=== PATIENT | male | born 1945 | race Caucasian/White ===

== ENCOUNTER 2020-06-24 13:27 | Inpatient (IN) | payer MEDICARE, SELFPAY ==
[2020-06-24] VITALS (27 sets, daily range): BP systolic 124–171; BP diastolic 62–103; PULSE 73–97; RESP 13–25; TEMP 36.6–36.9; O2SAT 92–94; BMI 29.7
--- NOTE | ~2020-06-24 | US_ITS ---
EXAMINATION: US right upper quadrant DATE: 06/24/2020 14:09 INDICATION: Chest pain. TECHNIQUE: Multiple grayscale and Doppler ultrasound images of the abdomen were obtained. COMPARISON: Chest CT 10/18/2014 FINDINGS: The visualized portions of the head and body of the pancreas are normal. The liver demonstr ates diffuse steatosis. No liver surface nodularity. There is normal flow in main portal vein. The ga llbladder is distended. No gallstones or gallbladder wall thickening. There was no sonographic Valencia sign. The common duct is normal and measures 3 mm. Right kidney is normal. IMPRESSION: 1. Diffuse hepatic steatosis. 2. Gallbladder distention, but no specific evidence of acute cholecystitis. Reviewed, dictated and finalized at location A.
--- NOTE | ~2020-06-24 | XR_ITS ---
EXAMINATION: XR chest 1V portable DATE: 06/26/2020 12:42 INDICATION: Hypoxia. TECHNIQUE: A single frontal view of the chest was obtained. COMPARISON: Chest 2 views 06/24/2020, chest CT 06/24/2020 FINDINGS: There is mild atelectasis in the lower lung zones. No pleural effusion or pneumothorax. The heart size is normal. Calcified right hilar lymph nodes are consistent with old granulomatous diseas e. IMPRESSION: 1. Mild atelectasis in the lower lung zones. Reviewed, dictated and finalized at location A.
--- NOTE | ~2020-06-24 | XR_ITS ---
EXAMINATION: XR chest 2V DATE: 06/24/2020 13:52 INDICATION: Chest pain. TECHNIQUE: Frontal and lateral views of the chest were obtained. COMPARISON: Chest 2 views 12/08/2005, chest CT 10/18/2014 FINDINGS: There is mild atelectasis in the lower lung zones. No pleural effusion or pneumothorax. The heart size is normal. IMPRESSION: 1. Mild atelectasis in the lower lung zones. Reviewed, dictated and finalized at location A.
--- NOTE | ~2020-06-24 | CT_ITS ---
EXAMINATION: CTA chest PE protocol DATE: 06/24/2020 16:07 CDT INDICATION: Chest pain TECHNIQUE: Computed tomographic angiography (CTA) of the chest was performed with 100 mL Omnipaque-35 0 intravenous contrast. The dose-length product was 643.28 mGy-cm. Maximum intensity projection 3D-re constructions of the aorta and other arteries were constructed by the technologist on a separate work station. Automated exposure control and iterative reconstruction technique were employed. COMPARISON: CT dated 10/18/2014. FINDINGS: Study is technically adequate without evidence for pulmonary embolism. No significant vascu lar abnormality. No evidence for aortic aneurysm or dissection. Heart size normal. There are borderli ne size mediastinal lymph nodes, likely reactive. No significant pleural or pericardial effusion. Upp er abdomen is unremarkable. Stable 6 mm fissural nodule at the junction of the right minor and major fissure, likely benign lymph node. There is subsegmental atelectasis of the lower lungs bilaterally. There is dependent atelectasis. No endobronchial lesions. No acute osseous abnormality. IMPRESSION: 1. No evidence for pulmonary embolism. 2: Bibasilar subsegmental and dependent atelectasis. Reviewed, dictated and finalized at location A.
--- NOTE | ~2020-06-24 | NM_ITS ---
EXAMINATION: NM hepatobiliary w pharm EXAM DATE: 06/25/2020 14:04 INDICATION: Right upper quadrant pain. TECHNIQUE: 3.5 mCi Tc-99m mebrofenin (Choletec) was administered intravenously. Scintigraphic images of the abdomen were obtained for one hour. At that time 4 mg morphine injected and then additional i maging obtained for an additional half an hour. FINDINGS: There is normal clearance of radiotracer from the blood pool. There is homogeneous tracer u ptake by the liver. By 20 minutes time activity identified within the common bile duct, and shortly t hereafter within small bowel. No gallbladder activity at one hours time. Imaging following morphine injection also demonstrates no evidence of gallbladder activity. This is c onsistent with acute cholecystitis, but occasionally prolonged absence of food intake can lead to fal se positives. IMPRESSION: Nonfilling gallbladder, consistent with acute cholecystitis. Reviewed, dictated and finalized at location A.
--- NOTE | 2020-06-24 13:28 | ECG_ITS ---
Measurements Intervals [place] Rate: 87 P: 60 MN: 157 QRS: 29 QRSD: 93 T: 70 QT: 338 QTc: 408 Interpretive Statements SINUS RHYTHM BASELINE ARTIFACT- I, II, III, AVR, AVL, AVF, V2-V6 NORMAL ECG Electronically Signed On 06-24-2020 14:18:38 CDT by Bhavin Haile D.O.
--- NOTE | 2020-06-24 13:33 | ED.CHESTPAIN ---
HPI - Chest Pain General Chief Complaint: Chest Pain Stated Complaint: Chest pain Time Seen by Provider: 06/24/20 13:30 History of Present Illness HPI narrative: Patient is a 74-year-old male who presents to the ER with chest pain. Began prior to arrival. Sharp and radiating to the back. Occurred about 45 minutes after eating some biscuits and gravy. Some mild nausea associated with this. No exertional chest pain or shortness of breath. Denies previous IA. He has found no alleviating factors. Denies abdominal pain/diarrhea. Related Data Home Medications Medication Instructions Recorded Confirmed atorvastatin 10 mg PO DAILY 06/24/20 06/24/20 cholecalciferol (vitamin D3) 1,000 units PO DAILY 06/24/20 06/24/20 glimepiride 2 mg PO DAILY 06/24/20 06/24/20 Allergies Allergy/AdvReac Type Severity Reaction Status Date / Time latex Allergy Unknown Unknown Verified 06/24/20 13:36 Review of Systems Review of Systems: All systems reviewed & are unremarkable except as noted in HPI and below Constitutional: Constitutional: Denies chills and Denies fever(s) ENT: Denies nasal congestion and Denies sore throat Cardiovascular: Cardiovascular: Reports chest pain, Denies rapid heart rate and Denies radiating jaw, neck or arm pain Respiratory: Respiratory: Denies cough, Denies dyspnea and Denies wheezing Gastrointestinal: Gastrointestinal: Denies abdominal pain, Denies constipation, Denies diarrhea, Reports nausea and Denies vomiting Genitourinary: Genitourinary: Denies hematuria, Denies dysuria and Denies urinary frequency [facility] Past Medical History Medical History (Updated 06/25/20 @ 00:20 by Hu Huerta MD) Asbestosis BMI 25.0-25.9,adult Chronic obstructive pulmonary disease, unspecified Hypercholesterolemia Hyperlipidemia Hypertension Type 2 diabetes mellitus without complications Surgical History Surgical History (Updated 06/24/20 @ 19:34 by Kari Sanches NP) S/P arthroscopic surgery of right knee S/P tonsillectomy and adenoidectomy Family History Family History (Updated 06/24/20 @ 19:53 by Tarah Siddiqui RN) Sibling Cancer Father Acute myocardial infarction Sibling Esophageal adenocarcinoma Social History Social History (Updated 06/24/20 @ 19:41 by Kari Sanches NP) Social History: Patient is and his is the durable power employment law attorney for healthcare. The patient desires to be a full code but does not desire to live in a vegetative state. The patient has 2 children. The patient quit smoking in 1988. He has 2 children. He retired from [employer]. Smoking status: Never smoker Second hand tobacco smoke exposure: No Alcohol intake: current Substance use: never Substance use type: does not use Gender identity (if verbalized by the patient): Male Spiritual care concerns: No Exam Narrative: Exam Narrative: GENERAL: Well-appearing, well-nourished, and in no acute distress. HEAD: Normocephalic, atraumatic. NECK: Supple. CHEST: Clear to auscultation. No respiratory distress. HEART: Regular rate and rhythm. Normal peripheral pulses. ABDOMEN: Soft, tender palpation right upper quadrant with guarding, nondistended. EXTREMITIES: Normal range of motion. trace edema. SKIN: Warm, dry, no rash. NEURO: Alert and oriented x3. PSYCH: Normal mood and affect. Course Reevaluation(s) Reevaluation #1: Patient still having pain after morphine. Ultrasound with distended gallbladder but no stones or evidence of cholecystitis. LFTs normal. Patient is now in atrial flutter and given his persistent pain and reports that he has pain with deep breath will rule out pulmonary emboli with a CTA. Date: 06/24/20 Time: 15:32 Vital Signs Vital signs: Vital Signs Temperature 98 F 06/24/20 13:33 Pulse Rate 93 06/24/20 13:33 Respiratory Rate 21 H 06/24/20 13:33 Blood Pressure 171/103 H 06/24/20 13:33 Pulse Oximetry 92 06/24/20 13:33 Tem
[2020-06-24] MEDS: MORPHINE SULFATE (*CRX) 4 MG/ML INJ IV PUSH ×3 (13:59→20:08)
[2020-06-24 14:54] LABS: Basophils Absolute Auto 0.1 K/mm3 (0.0-0.1); Basophils Percent Auto 0.5 % (0.2-1.2); Eosinophils Absolute Auto 0.2 K/mm3 (0-0.3); Eosinophils Percent Auto 1.9 % (0-4.4); Hemoglobin 16.2 g/dL (14.0-18.0); Immature Granulocyte Absolute 0.05 K/mm3 (0.00-0.031); Immature Granulocyte Percent A 0.5 % (0-0.5); Lymphocytes Absolute Auto 2.19 K/mm3 (0.9-3.2); Lymphocytes Percent Auto 21.7 % (18.3-44.2); Mean Corpuscular HGB Conc 34.5 g/dl (32-36); Mean Corpuscular Volume 92.7 fl (80-100); Mean Platelet Volume 11.8 fl (7.4-10.4); Monocytes Absolute Auto 0.9 K/mm3 (0.1-0.6); Neutrophils Absolute Auto 6.7 K/mm3 (1.3-6.7); Neutrophils Percent Auto 66.4 % (45.5-73.1); Platelet Count Result 176 k/mm3 (150-375); Red Blood Count 5.07 M/mm3 (4.6-6.20); Red Cell Distribution Width 13.6 % (11.5-14.5); White Blood Count 10.1 K/mm3 (4.5-10.0)
[2020-06-24 15:04] LABS: INR 0.9; Prothrombin Time 12.8 Seconds (11.1-14.7)
[2020-06-24 15:05] LABS: Alanine Aminotransferase 30 U/L (4-50); Albumin Level 4.3 g/dL (3.5-5.1); Alkaline Phosphatase 93 U/L (38-126); Anion Gap 9 mmol/L (8-16); Aspartate Amino Transferase 27 U/L (17-59); Bilirubin,Total 0.4 mg/dL (0.2-1.3); Blood Urea Nitrogen 18 mg/dL (9-20); Carbon Dioxide 25 mmol/L (22-30); Chloride 103 mmol/L (98-107); Estimated CRCL calculation 67 ml/min; Estimated Glomerular Filt Rate > 60; Glucose 251 mg/dL (75-110); Lipase 100 U/L (23-300); Partial Thromboplastin Time 31.4 SECONDS (22.3-36.8); Potassium 4.7 mmol/L (3.4-5.0); Sodium 137 mmol/L (137-145)
[2020-06-24 15:16] LABS: Troponin I < 0.012 ng/mL (0.000-0.034)
--- NOTE | 2020-06-24 15:27 | ECG_ITS ---
Measurements Intervals [place] Rate: 76 P: ID: 0 QRS: -14 QRSD: 100 T: 81 QT: 388 QTc: 437 Interpretive Statements ATRIAL FLUTTER/TACHYCARDIA BASELINE ARTIFACT- I, II, III, AVR, AVL, AVF, V1-V6 ABNORMAL ECG Electronically Signed On 06-24-2020 20:09:06 CDT by Bhavin Haile D.O.
[2020-06-24] MEDS: HYDROmorphone HCL INJ (*CRX) 1 MG/ML SYR IV PUSH (15:30)
--- NOTE | 2020-06-24 18:48 | PC.NURSE ---
nsr per tele monitor
--- NOTE | 2020-06-24 19:10 | PM.IMHP ---
H&P: HPI History of Present Illness Date/Time: 06/24/20 19:10 this is a 74-year-old male patient who came to the emergency room today because he was complaining of chest pain. The patient was having some right upper quadrant pain. Patient had some nausea as well. The patient was short of breath. The patient did take 3 baby aspirins prior to coming to the emergency room. He has not had any previous myocardial infarctions. Patient is diabetic and his blood sugars in the 200s. This occurred 45 minutes after eating some biscuits and gravy. The patient has COPD as well. Chest x-ray was read as mild atelectasis in lower lung zones. Upper quadrant ultrasound was read as diffuse hepatic steatosis. Gallbladder distension, but no specific evidence of acute cholecystitis. CT of the chest was read as no evidence of pulmonary embolism. Bibasilar segmental and dependent atelectasis. Patient is NPO. The patient was found to be in atrial flutter. Cardiology was notified and recommended no rate controlling medication or anticoagulation. In the emergency room the patient was given morphine and Dilaudid for his discomfort. Patient continues to have right upper quadrant tenderness. At the monitor he has 3-1 atrial flutter. Repeat EKG was shown as atrial flutter. The patient is being admitted to observation on the date of service of 06/24/2020. Chief Complaint: Abdominal pain Review of Systems Review of Systems: All systems reviewed & are unremarkable except as noted in HPI and below Constitutional: Constitutional: Reports as per HPI and Reports no additional constitutional complaints Eyes: Eyes: Reports as per HPI and Reports no additional eye complaints ENT: Reports system reviewed and no additional complaints, except as documented and Reports Normal hearing present Cardiovascular: Cardiovascular: Reports no additional cardiovascular complaints Respiratory: Respiratory: Reports no additional respiratory complaints and Reports no additional respiratory complaints Gastrointestinal: Gastrointestinal: Reports as per HPI and Reports no additional gastrointestinal complaints Musculoskeletal: Musculoskeletal: Reports no additional musculoskeletal complaints Integumentary/Breasts: Skin/Breast: Reports system reviewed and no additional complaints, except as docu and Reports as per HPI Neurologic: Reports system reviewed and no additional complaints, except as documented, Reports as per HPI and Reports Normal hearing present Psychiatric: Psychiatric: Reports no additional psychiatric complaints and Reports as per HPI Endocrine: Endocrine: Reports no additional endocrine complaints Hematologic/Lymphatic: Hematologic/Lymphatic: Reports no additional hematologic/lymphatic complaints Allergic/Immunologic: Allergic/Immunologic: Reports no additional allergic/immunologic complaints [facility] Past Medical History Medical History (Updated 06/24/20 @ 20:43 by Kari Sanches NP) Asbestosis BMI 25.0-25.9,adult Chronic obstructive pulmonary disease, unspecified Hypercholesterolemia Hyperlipidemia Hypertension Type 2 diabetes mellitus without complications Surgical History Surgical History (Updated 06/24/20 @ 19:34 by Kari Sanches NP) S/P arthroscopic surgery of right knee S/P tonsillectomy and adenoidectomy Family History Family History (Updated 06/24/20 @ 19:53 by Tarah Siddiqui RN) Sibling Cancer Father Acute myocardial infarction Sibling Esophageal adenocarcinoma Social History Social History (Updated 06/24/20 @ 19:41 by Kari Sanches NP) Social History: Patient is and his is the durable power document review attorney for healthcare. The patient desires to be a full code but does not desire to live in a vegetative state. The patient has 2 children. The patient quit smoking in 1988. He has 2 children. He retired from [employer]. Smoking status: Never smoker Second hand tobacco smoke exposure: No
[2020-06-24 19:19] LABS: Troponin I < 0.012 ng/mL (0.000-0.034)
[2020-06-24] MEDS: LACTATED RINGERS 1,000 ML 125 ML IV CONT (20:07)
[2020-06-24] MEDS: INSULIN ASPART (*BKC) 100 UNITS/ML SUB-Q (20:15)
[2020-06-24 20:56] LABS: Troponin I < 0.012 ng/mL (0.000-0.034)
[2020-06-24 21:09] LABS: Glucose Point of Care 213 (65-105)
--- NOTE | 2020-06-24 21:31 | ADMGEN ---
This patient, Sudhakar Mcneil, was admitted to Medical Room [facility] at 1925. Patient/family oriented to hospital policies and general routines including ID bracelet, bed and alarms, visiting hours, pain management, procedures, bathroom and other care routines, personal items, smoking policy, room service/diet, and visiting hours. Information on how to activate the Rapid Response Team has been discussed. Patient/Family are encouraged to report perceived risks to care and to ask questions if they do not understand what they are told or what they should do.
[2020-06-25] VITALS (16 sets, daily range): BP systolic 121–149; BP diastolic 68–91; PULSE 56–106; RESP 16–20; TEMP 36.9–37.2; O2SAT 90–99
--- NOTE | 2020-06-25 | ECHO_ITS ---
Patient Info Name: Sudhakar Mcneil Age: 74 years : 1945 Gender: Male Ht: 67 in Wt: 190 lbs BSA: 2.04 m2 HR: 93 bpm BP: 149 / 91 mmHg Heart Rhythm: Atrial Flutter Technical Quality: Other Exam Date: 06/25/2020 10:18 AM Exam Location: [facility] Exam Room: 257 Patient Status: Inpatient Admit Date: 06/24/2020 Staff Ordering Physician: Hu Huerta MD Financial Engineer: Shayy Kelly RDCS Attending Provider: Michelle Jesus MD Referring Physician: Bradley MENDIETA; Exam Type: CA echo dop color flow w con Study Info Indications - ATRIAL FLUTTER Complete two-dimensional, color flow and Doppler transthoracic echocardiogram is performed with contrast to opacify the left ventricle and to improve the deliniation of the left ventricle endocardial borders. Contrast/Agitated Saline Contrast/Ag. Saline: Definity Amount: 1.00 ml Administered By: Serena Solomon RN Existing IV Access: Yes IV Access Condition: patent with no signs of infiltration Summary 1. Left ventricular systolic function is normal, estimated at 60-65%. 2. There is no increased left ventricular wall thickness. 3. Left atrial chamber dimension is moderately enlarged. 4. Right atrial chamber dimension is mildly enlarged. 5. There is mild mitral valve regurgitation. 6. There is mild tricuspid valve regurgitation. 7. No pulmonary hypertension, estimated pulmonary arterial systolic pressure is 33 mmHg. 8. There is small pericardial effusion. Left Ventricle Left ventricular chamber dimension is normal. Left ventricular systolic function is normal, estimated at 60-65%. There is no increased left ventricular wall thickness. The left ventricular diastolic function is indeterminate. Right Ventricle Right ventricular chamber dimension is normal. Right ventricular systolic function is normal. Left Atria Left atrial chamber dimension is moderately enlarged. Right Atria Right atrial chamber dimension is mildly enlarged. Aortic Valve The aortic valve is not well visualized. There is mild aortic valve sclerosis. There is no aortic valve stenosis. There is no aortic valve regurgitation. Pulmonic Valve The pulmonic valve is not well visualized. There is trace pulmonic regurgitation. Mitral Valve The mitral valve has thickened leaflets. There is mild mitral valve regurgitation. The mitral valve annulus is mildly calcified. Tricuspid Valve The tricuspid valve leaflets are normal. There is mild tricuspid valve regurgitation. No pulmonary hypertension, estimated pulmonary arterial systolic pressure is 33 mmHg. Pericardium/Pleural The pericardium appears normal. There is small pericardial effusion. Inferior Vena Cava Normal inferior vena cava with >50% collapse upon inspiration consistent with normal right atrial pressure, 5 mmHg. Aorta The aortic root size at the sinus of Valsalva is normal. There is mild aortic atherosclerosis. Left Ventricular Outflow Tract Name Value Normal LVOT 2D LVOT Diameter 2.09 cm LVOT Doppler LVOT Peak Gradi
[2020-06-25] MEDS: MORPHINE SULFATE (*CRX) 4 MG/ML INJ IV PUSH ×4 (00:28→20:53)
[2020-06-25] MEDS: INSULIN ASPART (*BKC) 100 UNITS/ML SUB-Q ×3 (00:30→16:57)
[2020-06-25 00:37] LABS: Glucose Point of Care 238 (65-105)
--- NOTE | 2020-06-25 03:00 | ECG_ITS ---
Measurements Intervals [place] Rate: 107 P: RI: 0 QRS: 26 QRSD: 89 T: 74 QT: 347 QTc: 463 Interpretive Statements ATRIAL FLUTTER/TACHYCARDIA WITH RAPID VENTRICULAR RESPONSE NONSPECIFIC T-WAVE ABNORMALITY- LAT/HIGH LAT LEADS BASELINE ARTIFACT- I, III, AVL, V4 ABNORMAL ECG Electronically Signed On 06-29-2020 14:19:57 CDT by Bhavin Haile D.O.
[2020-06-25] MEDS: METOPROLOL TARTRATE INJ 5 MG/5 ML VIAL 2.5 MG IV PUSH (03:21)
[2020-06-25] MEDS: LACTATED RINGERS 1,000 ML 125 ML IV CONT ×3 (03:25→23:32)
[2020-06-25 05:39] LABS: Basophils Percent Auto 0.2 % (0.2-1.2); Eosinophils Percent Auto 0.1 % (0-4.4); Hematocrit 46.6 % (42.0-52.0); Immature Granulocyte Absolute 0.08 K/mm3 (0.00-0.031); Immature Granulocyte Percent A 0.5 % (0-0.5); Mean Corpuscular HGB Conc 34.3 g/dl (32-36); Mean Corpuscular Hemoglobin 31.4 pg (26-34); Mean Corpuscular Volume 91.6 fl (80-100); Mean Platelet Volume 11.9 fl (7.4-10.4); Monocytes Absolute Auto 1.6 K/mm3 (0.1-0.6); Monocytes Percent Auto 9.6 % (2.6-8.5); Neutrophils Absolute Auto 13.4 K/mm3 (1.3-6.7); Neutrophils Percent Auto 80.6 % (45.5-73.1); Platelet Count Result 166 k/mm3 (150-375); Red Blood Count 5.09 M/mm3 (4.6-6.20); Red Cell Distribution Width 13.7 % (11.5-14.5); White Blood Count 16.6 K/mm3 (4.5-10.0)
[2020-06-25] MEDS: PROMETHAZINE HCL 25 MG/ML AMPUL 12.5 MG IV PUSH (05:41)
[2020-06-25 05:48] LABS: Alanine Aminotransferase 29 U/L (4-50); Albumin Level 4.2 g/dL (3.5-5.1); Alkaline Phosphatase 65 U/L (38-126); Anion Gap 9 mmol/L (8-16); Aspartate Amino Transferase 26 U/L (17-59); Bilirubin,Total 0.9 mg/dL (0.2-1.3); Blood Urea Nitrogen 17 mg/dL (9-20); Calcium 9.2 mg/dL (8.4-10.2); Carbon Dioxide 28 mmol/L (22-30); Chloride 99 mmol/L (98-107); Estimated CRCL calculation 75 ml/min; Estimated Glomerular Filt Rate > 60; Glucose 228 mg/dL (75-110); Lipase 34 U/L (23-300); Magnesium 1.5 mg/dL (1.6-2.3); Potassium 4.4 mmol/L (3.4-5.0); Sodium 136 mmol/L (137-145)
[2020-06-25 06:59] LABS: Glucose Point of Care 234 (65-105)
[2020-06-25 09:06] LABS: Glucose Point of Care 234 (65-105)
[2020-06-25] MEDS: PERFLUTREN LIPID MICROSPHERES 1.5 ML VIAL DILUTED TO 10 ML TOTAL VOLUME IV PUSH (10:49)
--- NOTE | 2020-06-25 12:15 | PM.CNCAR ---
Assessment and Plan Assessment and plan (1) Atrial flutter: Code(s): I48.92 - Unspecified atrial flutter Status: Acute Assessment and Plan: New diagnosis with symptoms suggestive of noted onset at least 6 months ago. Paroxysmal with brief intermittent sinus rhythm on telemetry. No atrial fibrillation identified. predominant underlying atrial flutter with occasional RVR, generally heart rate controlled variable AV block. We discussed rate versus rhythm control at length. As he has paroxysmal unless sustained with rapid ventricular response will not initially plan for REGINA guided cardioversion. Rate control strategy with medical therapy to start with Metoprolol 25 mg twice daily as tolerated. Atrial flutter is not the cause of his abdominal pain. Negative serial troponins Recommend initiation of systemic anticoagulation timing Depending upon workup and need for surgical intervention. CHADS2-Vasc score of 3 systemic A/C advised. explained embolic stroke versus bleeding risk in detail. Patient verbalized understanding and agreed with plan of care. May utilize Eliquis 5 mg q.12 hours or Xarelto 20 mg at bedtime when able to safely initiate systemic anticoagulation. Echocardiogram personally reviewed EF preserved 60-65% moderate left atrial enlargement, mild mitral regurgitation RVSP 33 mmHg, within normal range. (2) Abdominal pain, RUQ: Code(s): R10.11 - Right upper quadrant pain Status: Acute Assessment and Plan: Workup underway per primary service. Gallbladder distension on abdominal imaging, HIDA scan initially pending at time of consult but result has now returned consistent with acute cholecystitis. will hold off on systemic anticoagulation until need for surgical intervention is clarified. (3) Hyperlipidemia: Code(s): E78.5 - Hyperlipidemia, unspecified Status: Chronic Assessment and Plan: continue atorvastatin. (4) Hypertension: Code(s): I10 - Essential (primary) hypertension Status: Chronic Assessment and Plan: Elevated times at patient is in significant abdominal pain. (5) Type 2 diabetes mellitus without complications: Code(s): E11.9 - Type 2 diabetes mellitus without complications Status: Chronic Assessment and Plan: Longstanding, management per primary service. (6) Chronic obstructive pulmonary disease, unspecified: Code(s): J44.9 - Chronic obstructive pulmonary disease, unspecified Status: Chronic Assessment and Plan: Symptoms much improved on Anoro. Patient describes history of asbestosis for which he is service connected, describes home oxygen saturations generally around 90% on room air. history of home O2. History of Present Illness History of Present Illness Consult date/time: Date of service:06/25/20 12:15 Cardiology consultation at the request of CECILIA Martinez for opinion regarding new diagnosis atrial flutter and complaints of chest pain. Requesting physician: Kari Sanches NP Consult reason: chest pain and atrial fibrillation (atrial flutter) Reason For Visit: RUQ pain/ atrial flutter Narrative: Patient is a very pleasant 74-year-old male with a past medical history significant for asbestosis, COPD, remote tobacco abuse, hypertension, diabetes mellitus, dyslipidemia and no prior diagnosis history of atrial fibrillation or flutter who presented to the emergency depart with complaints of chest pain which began in his right upper quadrant radiated up into his chest. Patient states his pain is quite severe, took 4 baby aspirin prior to arrival without improvement. Symptom onset began approximately 45 minutes after eating biscuits and gravy and due to the severity and persistence prompted him to present to the ER. Ultrasound performed revealed diffuse hepatic steatosis with distention of the gallbladder without clear acute cholecystitis. CT angiogram of the chest revealed no pul
[2020-06-25 12:31] LABS: Glucose Point of Care 209 (65-105)
--- NOTE | 2020-06-25 12:35 | PM.IMPN ---
Progress Note: A&P Assessment and Plan (1) Abdominal pain: Code(s): R10.9 - Unspecified abdominal pain Status: Acute Assessment and Plan: Abd US-->diffuse hepatic steatosis GB distension but not specific evidence of acute cholecystitis GI consult pending HIDA scan pending Continue pain management Troponins negative x2 Tele monitoring (2) Chronic obstructive pulmonary disease, unspecified: Code(s): J44.9 - Chronic obstructive pulmonary disease, unspecified Status: Chronic Assessment and Plan: Continue with home inhalers (3) Type 2 diabetes mellitus without complications: Code(s): E11.9 - Type 2 diabetes mellitus without complications Status: Chronic Assessment and Plan: Accu-Cheks every 6 hours with sliding scale Hgb a1c 8 Monitor BG (4) Hypertension: Code(s): I10 - Essential (primary) hypertension Status: Chronic Assessment and Plan: p.r.n. hydralazine Monitor (5) Hyperlipidemia: Code(s): E78.5 - Hyperlipidemia, unspecified Status: Chronic Assessment and Plan: Resume home meds when appropriate (6) Atrial flutter: Code(s): I48.92 - Unspecified atrial flutter Status: Acute Assessment and Plan: Cardiology following, recommendations appreciated No rate controlling medications at this time or any anticoagulation (7) Hypomagnesemia: Code(s): E83.42 - Hypomagnesemia Status: Acute Assessment and Plan: 1.5 Replace Monitor Subjective Date/time seen: 06/25/20 12:35 Pt tells me his abdominal pain has improved; continues with nausea, no vomiting; HIDA scan pending Review of Systems Review of Systems: All systems reviewed & are unremarkable except as noted in HPI and below Exam Const: General: cooperative, comfortable, no acute distress, well developed, alert, awake and Physically active Nutritional Appearance: average body habitus and overweight Orientation/consciousness: oriented to person, oriented to place, oriented to time and patient oriented x3 Limitations: no limitations HENMT: Head: normal to inspection, No palpable skull fracture present, normocephalic and atraumatic Ears: hearing grossly normal bilaterally and external ears normal General nose exam: Normal external nose present, Normal nares present and No nasal polyps present Throat: posterior oropharynx normal Eyes: General: appearance normal, both eyes and all related structures Alignment and Position: alignment normal Periorbital: periorbital findings normal Eyelids: eyelids normal Conjunctivae: conjunctivae normal Sclera: sclerae normal Cornea: corneas normal Pupils: Equal, round and reactive pupils present EOM: EOMs intact bilaterally Neck: Neck: normal visual inspection, full ROM, no lymphadenopathy, trachea midline and supple Thyroid: thyroid normal Chest: Chest palpation & inspection: normal inspection of the chest Resp: Effort & Inspection: normal respiratory effort Auscultation: clear to auscultation bilaterally Percussion: percussion normal Cardio: Palpation: normal PMI Rate: regular rate Rhythm: abnormal rhythm regularly irregular Heart sounds: S1 normal heart sound present and S2 normal heart sound present Peripheral pulses: Peripheral pulses 2+ throughout GI: Inspection: normal to inspection and Pannus present Skin: General skin exam: normal color Lesions: no lesions Rashes: no rashes Trauma: no lacerations or abrasions Wounds: no wounds Hair: normal Nails: normal Neuro: General: oriented to person, oriented to place, oriented to time and patient oriented x3 Cranial nerves: Yes Equal, round and reactive pupils present and Yes Normal hearing present Cognition (Neuro): normal cognition Speech: normal speech Extrem: General: normal to inspection Right upper extremity: normal to inspection Left upper extremity: normal to inspection Right lower extremity: normal to inspection L
[2020-06-25] MEDS: METOPROLOL TARTRATE 25 MG TABLET PO ×2 (15:14→20:52)
[2020-06-25] MEDS: MAGNESIUM OXIDE 200 MG TABLET PO (15:14)
[2020-06-25 16:40] LABS: Glucose Point of Care 215 (65-105)
[2020-06-25] MEDS: UMECLIDINIUM/VILANTEROL 62.5-25 MCG ELLIPTA 1 PUFF INHALATION (19:36)
[2020-06-25 22:17] LABS: Glucose Point of Care 204 (65-105)
[2020-06-26] VITALS (25 sets, daily range): BP systolic 118–140; BP diastolic 66–82; PULSE 72–101; RESP 14–24; TEMP 35.9–38.5; O2SAT 87–93
[2020-06-26 01:31] LABS: Glucose Point of Care 218 (65-105)
[2020-06-26] MEDS: INSULIN ASPART (*BKC) 100 UNITS/ML SUB-Q ×2 (01:31→18:03)
[2020-06-26 06:39] LABS: Glucose Point of Care 189 (65-105)
--- NOTE | 2020-06-26 07:00 | WPDGICN ---
Assessment and Plan Assessment and plan (1) Abdominal pain, RUQ: Code(s): R10.11 - Right upper quadrant pain Status: Acute Assessment and Plan: hida scan consistent with cholecystitis and pain is improved now (2) Acute cholecystitis: Code(s): K81.0 - Acute cholecystitis Status: Acute Assessment and Plan: lap tonie today (3) Atrial flutter: Code(s): I48.92 - Unspecified atrial flutter Status: Acute Assessment and Plan: cardiology on board (4) Type 2 diabetes mellitus without complications: Code(s): E11.9 - Type 2 diabetes mellitus without complications Status: Chronic GI Consult Note Consult date/time: 06/26/20 07:00 Reason for consult: RUQ pain, cholecystitis HPI: Sudhakar Mcneil is a 74 year old male who came to the hospital 2 days ago because acute onset upper abdominal pain after had some gravy and biscuits, pain was rather severe and admitted to hospital. He has never experienced pains like this in the past, no fevers or chills. Pain improved since admission with medical treatment. CT scan reviewed, distended gallbladder was identified but no clear signs of cholelithiasis. Also had A flutter and cardiology is on board, finally had HIDA scan yesterday which showed nonfilling of the gallbladder consistent with acute cholecystitis. Patient will be taken for cholecystectomy. He had colonoscopy ~ 3 years ago. Review of Systems Constitutional: Constitutional: Denies chills Eyes: Eyes: Reports no additional eye complaints ENT: Reports Normal hearing present Cardiovascular: Cardiovascular: Denies chest pain Respiratory: Respiratory: Denies dyspnea Gastrointestinal: Gastrointestinal: Reports abdominal pain Genitourinary: Genitourinary: Denies dysuria Musculoskeletal: Musculoskeletal: Denies neck pain Integumentary/Breasts: Skin/Breast: Denies dry skin Neurologic: Denies headache(s) Psychiatric: Psychiatric: Reports no additional psychiatric complaints PMFSH Past Medical History Medical History Asbestosis BMI 25.0-25.9,adult Chronic obstructive pulmonary disease, unspecified Hypercholesterolemia Hyperlipidemia Hypertension Type 2 diabetes mellitus without complications Surgical History Surgical History S/P arthroscopic surgery of right knee S/P tonsillectomy and adenoidectomy Family History Family History Sibling Cancer Father Acute myocardial infarction Sibling Esophageal adenocarcinoma Social History Social History Social History: Patient is and his is the durable power contracts attorney for healthcare. The patient desires to be a full code but does not desire to live in a vegetative state. The patient has 2 children. The patient quit smoking in 1988. He has 2 children. He retired from [employer]. Smoking status: Never smoker Second hand tobacco smoke exposure: No Alcohol intake: current Substance use: never Substance use type: does not use Gender identity (if verbalized by the patient): Male Spiritual care concerns: No Meds Home Medications and Allergies Home Medications Medication Instructions Recorded Confirmed Type albuterol sulfate 90 mcg/actuation 1 inh INHALATION Q4H PRN #18 g 01/03/20 06/24/20 Rx aerosol inhaler insulin detemir U-100 100 unit/mL See Rx Instructions SUBCUT DAILY 01/03/20 06/24/20 Rx subcutaneous solution #30 ml linagliptin 5 mg tablet 5 mg PO QAM #90 tablet 01/03/20 06/24/20 Rx metformin 1,000 mg tablet 1,000 mg PO BID #180 tablet 01/03/20 06/24/20 Rx omega-3 acid ethyl esters 1 gram 2 cap PO BID #360 cap 01/03/20 06/24/20 Rx capsule umeclidinium 62.5 mcg-vilanterol 1 inh INHALATION DAILY #47 ea 01/03/20 06/24/20 Rx 25 m
[2020-06-26] MEDS: UMECLIDINIUM/VILANTEROL 62.5-25 MCG ELLIPTA 1 PUFF INHALATION (07:22)
--- NOTE | 2020-06-26 07:22 | PM.CNGS ---
Assessment and Plan Assessment and plan (1) Acute cholecystitis: Code(s): K81.0 - Acute cholecystitis Status: Acute Assessment and Plan: I have reviewed the imaging and discussed the findings with the patient. He has evidence of acute cholecystitis based on the HIDA scan. He has chances of continuing to have pain or having acute attacks like this again in the future. I also discussed with him that because he is in need of starting anticoagulation for his intermittent atrial flutter, if he has another attack this will be higher risk for surgery due to him being on anticoagulation. Patient states that he does not want to go through another episode like this in the future. I have recommended laparoscopic cholecystectomy, possible open. Discussed the procedure, risks, benefits, and alternatives. Questions were answered. Will plan to proceed with surgery today. (2) Atrial flutter: Code(s): I48.92 - Unspecified atrial flutter Status: Acute Assessment and Plan: Cardiology recommending eventual anticoagulation as well as further rate control with beta-desirae. It should be okay to start anticoagulation about 24-48 hours after surgery. (3) Hypertension: Code(s): I10 - Essential (primary) hypertension Status: Chronic (4) Chronic obstructive pulmonary disease, unspecified: Code(s): J44.9 - Chronic obstructive pulmonary disease, unspecified Status: Chronic (5) Type 2 diabetes mellitus without complications: Code(s): E11.9 - Type 2 diabetes mellitus without complications Status: Chronic History of Present Illness Consult details Consult date: 06/26/20 Reason for consult: abdominal pain Requesting physician: Milla Steiner APN-C Narrative: This is a 74-year-old man who I am asked to see for acute cholecystitis. He presented to the emergency department on 06/24/2020 with acute onset upper abdominal pain. He states that this happened suddenly while he was driving home from doing some shopping. He had eaten biscuits and gravy for breakfast that morning before the pain started. He has never experienced pains like this in the past. He denies any fevers or chills. He does state that the pain has started to improve since last night. Initially in the emergency department a CT a of his chest and abdominal ultrasound was obtained. Distended gallbladder was identified but no clear signs of cholelithiasis. He was then admitted for further workup and cardiology was also consulted for atrial flutter. He underwent HIDA scan yesterday which showed nonfilling of the gallbladder consistent with acute cholecystitis. Review of Systems Review of Systems: All systems reviewed & are unremarkable except as noted in HPI and below Eyes: Eyes: Denies change in vision ENT: Denies hearing loss, Denies neck pain and Denies sore throat Cardiovascular: Cardiovascular: Denies chest pain and Denies dyspnea Respiratory: Respiratory: Denies cough, Denies dyspnea and Denies wheezing Genitourinary: Genitourinary: Denies hematuria and Denies dysuria Musculoskeletal: Musculoskeletal: Denies arthralgias, Denies joint swelling and Denies neck pain Allergic/Immunologic: Allergic/Immunologic: Denies wheezing [facility] Past Medical History Medical History Asbestosis BMI 25.0-25.9,adult Chronic obstructive pulmonary disease, unspecified Hypercholesterolemia Hyperlipidemia Hypertension Type 2 diabetes mellitus without complications Surgical History Surgical History S/P arthroscopic surgery of right knee S/P tonsillectomy and adenoidectomy Family History Family History Sibling Cancer Father Acute myocardial infarction Sibling Esophageal adenocarcinoma Social History Social History (Reviewed 06/26/20 @ 07:26 by
[2020-06-26 07:52] LABS: Magnesium 1.6 mg/dL (1.6-2.3)
[2020-06-26 07:53] LABS: Basophils Percent Auto 0.2 % (0.2-1.2); Hematocrit 49.2 % (42.0-52.0); Hemoglobin 16.8 g/dL (14.0-18.0); Immature Granulocyte Absolute 0.17 K/mm3 (0.00-0.031); Immature Granulocyte Percent A 0.9 % (0-0.5); Lymphocytes Absolute Auto 1.79 K/mm3 (0.9-3.2); Lymphocytes Percent Auto 9.1 % (18.3-44.2); Mean Corpuscular HGB Conc 34.1 g/dl (32-36); Mean Corpuscular Hemoglobin 31.6 pg (26-34); Mean Corpuscular Volume 92.7 fl (80-100); Monocytes Absolute Auto 1.6 K/mm3 (0.1-0.6); Neutrophils Absolute Auto 16.1 K/mm3 (1.3-6.7); Neutrophils Percent Auto 81.8 % (45.5-73.1); Platelet Count Result 168 k/mm3 (150-375); Red Blood Count 5.31 M/mm3 (4.6-6.20); Red Cell Distribution Width 13.7 % (11.5-14.5); White Blood Count 19.6 K/mm3 (4.5-10.0)
[2020-06-26 08:13] LABS: Glucose Point of Care 205 (65-105)
[2020-06-26] MEDS: LACTATED RINGERS 1,000 ML 90 ML IV CONT (08:19)
[2020-06-26] MEDS: METOPROLOL TARTRATE 25 MG TABLET PO ×2 (08:26→20:14)
[2020-06-26] MEDS: MAGNESIUM SULFATE 3GM/D5W100ML 3 GM/100 ML BAG IVPB (08:53)
[2020-06-26] MEDS: PROMETHAZINE HCL 25 MG/ML AMPUL 12.5 MG IV PUSH (09:37)
[2020-06-26] MEDS: CHLORHEXIDINE GLUCONATE 4% SOL 120 ML BTL 1 APPLIC TOPICAL (09:41)
--- NOTE | 2020-06-26 10:41 | PM.IMPN ---
Progress Note: A&P Assessment and Plan (1) Acute cholecystitis: Code(s): K81.0 - Acute cholecystitis Status: Acute Assessment and Plan: Patient came in with abdominal pain or right upper quadrant with radiation to back. Shows diffuse hepatic steatosis. Gallbladder distension, but no specific evidence of acute cholecystitis. HIDA scan was ordered and came back showing nonfilling gallbladder, consistent with acute cholecystitis. Surgery was consulted and has plans to take him for a laparoscopic cholecystectomy this afternoon. Patient was started on IV antibiotics (IV Zosyn Day #1), IV fluid hydration Continue pain control and antiemetics Continue monitoring. Appreciate surgeries input (2) Acute respiratory failure with hypoxia: Code(s): J96.01 - Acute respiratory failure with hypoxia Status: Acute Assessment and Plan: History of COPD but not chronically on any oxygen therapy. He had been receiving copious amounts of IV fluids which was decreased down based on his weight Echocardiogram was ordered showing normal LV systolic function with an EF of 60-65%. No LVH, no pulmonary hypertension, unable to determine diastolic function. No leg swelling at this time, slight crackles to bases, left greater than right but could be due to chronic lung disease Will order chest x-ray at this time to rule out acute CHF versus pneumonia verses atelectasis due to abdominal pain and lack of deep inspiration Will order incentive spirometer He is resting comfortably at this time, walked in the room over to the chair without any significant dyspnea, laying almost completely flat during my examination without any dyspnea noted. Continue monitoring oxygenation. 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 About 5 years ago he did require oxygen for about 1 month while undergoing treatment for pneumonia. He has not been on any oxygen therapy since then Continue with home inhalers (4) Type 2 diabetes mellitus without complications: Code(s): E11.9 - Type 2 diabetes mellitus without complications Status: Chronic Assessment and Plan: Hemoglobin A1c is 8%. Will hold patient's Detemir Insulin and metformin since he is NPO at this time. Glucose this morning was 205 Continue monitoring glucose with Accu-Cheks every 6 hours with sliding scale, hypoglycemic protocol in place. (5) Hypertension: Code(s): I10 - Essential (primary) hypertension Status: Chronic Assessment and Plan: Blood pressure this morning was 134/77, well controlled. Will hold ARB at this time since he is NPO Continue monitoring blood pressure. P.r.n. hydralazine (6) Hyperlipidemia: Code(s): E78.5 - Hyperlipidemia, unspecified Status: Chronic Assessment and Plan: On hold. Resume home meds when appropriate (7) Atrial flutter: Code(s): I48.92 - Unspecified atrial flutter Status: Acute Assessment and Plan: New onset atrial flutter, could be in the setting of acute cholecystitis infection. Cardiology evaluated the patient and started him on metoprolol 25 mg twice daily and due to his chads 2 Vasc score he will require anticoagulation. Started metoprolol Pending anticoagulation since he his going to be taken to the OR for a laparoscopic cholecystectomy Anticoagulation will be started by Cardiology Continue monitoring. (8) Hypomagnesemia: Code(s): E83.42 -
--- NOTE | 2020-06-26 12:21 | PC.NURSE ---
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
--- NOTE | 2020-06-26 12:29 | PC.NURSE ---
On 06/26/20, the student, [NAVA GONZALEZ], provided care and completed [facility] documentation on this patient. I have reviewed the student's documentation and agree with the findings.
[2020-06-26 12:53] LABS: Glucose Point of Care 225 (65-105)
--- NOTE | 2020-06-26 13:43 | WPDHPUPDATE1 ---
History and Physical Update Update Date/Time: 06/26/20 13:43 History and Physical has been reviewed, including an updated exam of the patient. There are NO changes in the patient's condition. Risks, benefits, and alternatives have been discussed and questions answered. Patient agrees to proceed with procedure.
--- NOTE | 2020-06-26 13:52 | PC.NURSE ---
To OR per KAREEM polo. Report given to July.
[2020-06-26] MEDS: LACTATED RINGERS 1,000 ML 30 ML IV CONT ×2 (14:00→15:59)
--- NOTE | 2020-06-26 14:07 | WPDANESEPPF ---
Anes - Initial Pre Proc Eval Procedure: Operation Date: 06/26/20 16:30 Proposed Procedures p Laparoscopic Cholecystectomy - Yao Harris DO Date/Time: 06/26/20 14:07 Surgeon: Randa Grey PA-C Pre Op Diagnosis: RUQ pain/ atrial flutter Patient Data Age: 74 Gender: M Height: 1.7 m Weight: 86.1 kg Last Vital Signs Temp 35.9 C L 06/26/20 09:15 Pulse 78 06/26/20 12:00 Resp 18 06/26/20 09:15 BP 121/70 06/26/20 09:15 Pulse Ox 88 L 06/26/20 09:15 Allergies Allergy/AdvReac Type Severity Reaction Status Date / Time latex Allergy Unknown Unknown Verified 06/25/20 02:02 Home Medications Medication Instructions Recorded Confirmed Type albuterol sulfate 90 mcg/actuation 1 inh INHALATION Q4H PRN #18 g 01/03/20 06/24/20 Rx aerosol inhaler insulin detemir U-100 100 unit/mL See Rx Instructions SUBCUT DAILY 01/03/20 06/24/20 Rx subcutaneous solution #30 ml linagliptin 5 mg tablet 5 mg PO QAM #90 tablet 01/03/20 06/24/20 Rx metformin 1,000 mg tablet 1,000 mg PO BID #180 tablet 01/03/20 06/24/20 Rx omega-3 acid ethyl esters 1 gram 2 cap PO BID #360 cap 01/03/20 06/24/20 Rx capsule umeclidinium 62.5 mcg-vilanterol 1 inh INHALATION DAILY #47 ea 01/03/20 06/24/20 Rx 25 mcg/actuation powdr for inhalation olmesartan 20 mg tablet 20 mg PO DAILY #90 tablet 01/14/20 06/24/20 Rx montelukast 10 mg tablet 10 mg PO DAILY #90 tablet 04/04/20 06/24/20 Rx atorvastatin 10 mg PO DAILY 06/24/20 06/24/20 History cholecalciferol (vitamin D3) 1,000 units PO DAILY 06/24/20 06/24/20 History glimepiride 2 mg PO DAILY 06/24/20 06/24/20 History Laboratory Tests 06/25/20 06/25/20 06/26/20 16:36 20:57 01:29 WBC RBC Hgb Hct MCV MCH MCHC RDW Plt Count MPV Immature Gran % (Auto) Neut % (Auto) Lymph % (Auto) White % (Auto) Eos % (Auto) Baso % (Auto) Lymph # (Auto) White # (Auto) Eos # (Auto) Baso # (Auto) Abs Immat Gran (auto) Absolute Neuts (auto) Absolute Nucleated RBC Nucleated RBC % POC Capillary Glucose 215 mg/dl H mg/dl 204 mg/dl H mg/dl 218 mg/dl H mg/dl (65-105) (65-105) (65-105) Magnesium Blood Type Antibody Screen 06/26/20 06/26/20 06/26/20 06:34 07:31 07:35 WBC 19.6 K/mm3 H K/mm3 (4.5-10.0) RBC 5.31 M/mm3 M/mm3 (4.6-6.20) Hgb 16.8 g/dL g/dL (14.0-18.0) Hct 49.2 % % (42.0-52.0) MCV 92.7 fl fl (80-100) MCH 31.6 pg pg (26-34) MCHC 34.1 g/dl g/dl (32-36) RDW 13.7 % % (11.5-14.5) Plt Count 168 k/mm3 k/mm3 (150-375) MPV 12.0 fl H fl (7.4-10.4) Immature Gran % (Auto) 0.9 % H % (0-0.5) Neut % (Auto) 81.8 % H % (45.5-73.1) Lymph % (Auto) 9.1 % L % (18.3-44.2) White % (Auto) 8.0 % % (2.6-8.5) Eos % (Auto) 0.0 % % (0-4.4) Baso % (Auto) 0.2 % % (0.2-1.2) Lymph # (Auto) 1.79 K/mm3 K/mm3 (0.9-3.2) White # (Auto) 1.6 K/mm3 H K/mm3 (0.1-0.6) Eos # (Auto) 0.0 K/mm3 K/mm3 (0-0.3) Baso # (Auto) 0.0 K/mm3 K/mm3 (0.0-0.1) Abs Immat Gran (auto) 0.17 K/mm3 H K/mm3 (0.00-0.031) Absolute Neuts (auto) 16.1 K/mm3 H K/mm3 (1.3-6.7) Absolute Nucleated RBC 0.0 K/mm3 K/mm3 (0.0-0.012) Nucleated RBC % 0.0 % % (0.0-0.2) POC Capillary Glucose 189 mg/dl H mg/dl (65-105) Magnesium Blood Type O Positive Antibody Screen Negative 06/26/20 06/26/20 06/26/20 07:35 08:09 12:10 WBC RBC Hgb Hct MCV
[2020-06-26] MEDS: BUPIVACAINE/EPINEPHRINE 0.5% 30 ML VIAL INFILTRATE (14:29)
--- NOTE | 2020-06-26 15:40 | PM.PROC ---
Procedure Note - Detailed Date of procedure: 06/26/20 Pre-op diagnosis: Acute cholecystitis Post-op diagnosis: other (Acute gangrenous cholecystitis) Procedure performed: Laparoscopic Cholecystectomy Description of procedure: Procedure as well as risks, benefits, and alternatives were discussed with patient. Written consent was obtained and placed in chart prior to procedure. The patient was brought back to surgical suite. Patient was placed in supine position on operating table. Time-out was done to confirm patient and procedure. Patient was then intubated by the anesthesia department. Abdomen was prepped and draped in sterile fashion using chlorhexidine prep. 0.5% bupivacaine with epinephrine was infiltrated at each site of incision. A 5 millimeter incision was made near the umbilicus, and a 5 millimeter Optiview trocar was advanced through the abdominal layers under direct visualization. Once inside the abdominal cavity, carbon dioxide was insufflated to create a pneumoperitoneum. The camera was inserted and the abdomen was inspected. No immediate abnormalities were identified. The patient was placed in reverse Trendelenburg position and rotated slightly to the left. An 11 millimeter incision was made in the subxiphoid region, and an 11 millimeter trocar was inserted under direct visualization. Two 5 millimeter incisions were made in the right upper quadrant, and two 5 millimeter trocars were inserted under direct visualization. The gallbladder was identified and grasped at the fundus and retracted superiorly. It was then grasped at the infundibulum retracted laterally. Careful dissection around the neck of the gallbladder was performed using blunt dissection with a [place] grasper and hook electrocautery. The cystic duct was identified, and a window was created behind it. The cystic artery was also identified and a window was created behind it. The critical view of safety was identified, visualizing the cystic duct running directly into the neck of the gallbladder, and the cystic artery running directly into the wall of the gallbladder. A 5 millimeter clip glove cleaner was then used to place 2 clips proximally and 1 clip distally on both the cystic duct and cystic artery. They were then both transected using endoscopic scissors. Once safely away from the varun hepatitis, the gallbladder was dissected free from the liver bed using hook electrocautery. Hemostasis was achieved along the way. The gallbladder was removed completely and then removed through the subxiphoid port. The liver bed was then inspected. Hemostasis appeared adequate, and our clips appeared secure. The area was gently irrigated with sterile saline. No other abnormalities were seen. The patient was flattened out in bed, and 1 final inspection was made around the abdominal cavity. A 19 round Frank drain was placed through the right lateral port and this was advanced under the right lobe of the liver into the gallbladder fossa. This drain was secured in place using a 3 0 nylon drain stitch. The subxiphoid port was removed, and a Alvin Esau cone was used to approximate the fascia with an 0-Vicryl simple interrupted suture. The remaining ports were then removed under direct visualization, the camera was removed, and the pneumoperitoneum was released. The skin of the incisions was approximated using 4-0 Monocryl subcuticular sutures. Exofin glue was applied on top. The patient was then awakened from anesthesia, extubated, and transferred to recovery. Anesthesia: GETA and local (0.5% bupivicaine with epi) Surgeon: Yao Harris DO Estimated blood loss (mL): 20 Drains: Yes (19-round Frank) Packing: No Pathology: yes Complications: No immediate complications Condition: stable (Patient tolerated procedure well, and is currently resting comfortably in recovery.) Disposition: floor Findings: This is a 74-year-old man who presented to the hospital 2 days ago with upper abdomina
[2020-06-26 16:10] LABS: Glucose Point of Care 257 (65-105)
--- NOTE | 2020-06-26 16:15 | SUR.PHASEI ---
Simple mask removed at 1613.
--- NOTE | 2020-06-26 16:24 | SUR.PHASEI ---
Anesthesia aware of O2 sats and BG. Dr. Ridley is ok without treating patient further at this time.
--- NOTE | 2020-06-26 17:00 | PC.NURSE ---
Returned from OR per stretcher. Report received from Kellie .
[2020-06-26] MEDS: LACTATED RINGERS 1,000 ML 100 ML IV CONT (17:11)
[2020-06-26 17:48] LABS: Glucose Point of Care 253 (65-105)
[2020-06-26] MEDS: HYDROcodone/acetaminophen (*CRX) 5-325 MG TABLET 1 TAB PO (20:14)
[2020-06-26 20:20] LABS: Glucose Point of Care 339 (65-105)
[2020-06-27] VITALS (11 sets, daily range): BP systolic 115–131; BP diastolic 59–77; PULSE 70–89; RESP 14–18; TEMP 36.1–36.9; O2SAT 87–93
[2020-06-27 05:45] LABS: Basophils Percent Auto 0.3 % (0.2-1.2); Eosinophils Percent Auto 0.1 % (0-4.4); Hematocrit 43.6 % (42.0-52.0); Hemoglobin 14.9 g/dL (14.0-18.0); Immature Granulocyte Absolute 0.12 K/mm3 (0.00-0.031); Immature Granulocyte Percent A 0.8 % (0-0.5); Lymphocytes Absolute Auto 1.85 K/mm3 (0.9-3.2); Lymphocytes Percent Auto 11.6 % (18.3-44.2); Mean Corpuscular HGB Conc 34.2 g/dl (32-36); Mean Corpuscular Hemoglobin 31.8 pg (26-34); Mean Platelet Volume 11.8 fl (7.4-10.4); Monocytes Absolute Auto 1.4 K/mm3 (0.1-0.6); Neutrophils Absolute Auto 12.5 K/mm3 (1.3-6.7); Neutrophils Percent Auto 78.2 % (45.5-73.1); Platelet Count Result 158 k/mm3 (150-375); Red Blood Count 4.69 M/mm3 (4.6-6.20); Red Cell Distribution Width 13.9 % (11.5-14.5)
[2020-06-27 06:01] LABS: Alanine Aminotransferase 31 U/L (4-50); Albumin Level 3.6 g/dL (3.5-5.1); Alkaline Phosphatase 45 U/L (38-126); Anion Gap 6 mmol/L (8-16); Aspartate Amino Transferase 32 U/L (17-59); Blood Urea Nitrogen 23 mg/dL (9-20); Carbon Dioxide 27 mmol/L (22-30); Chloride 99 mmol/L (98-107); Estimated CRCL calculation 75 ml/min; Estimated Glomerular Filt Rate > 60; Glucose 171 mg/dL (75-110); Magnesium 2.2 mg/dL (1.6-2.3); Potassium 4.5 mmol/L (3.4-5.0); Sodium 132 mmol/L (137-145)
[2020-06-27 08:01] LABS: Glucose Point of Care 175 (65-105)
[2020-06-27] MEDS: UMECLIDINIUM/VILANTEROL 62.5-25 MCG ELLIPTA 1 PUFF INHALATION (08:46)
[2020-06-27] MEDS: METOPROLOL TARTRATE 25 MG TABLET PO ×2 (08:46→21:19)
[2020-06-27] MEDS: ENOXAPARIN 40 MG/0.4 ML SYRINGE SUB-Q (08:47)
--- NOTE | 2020-06-27 09:23 | WPDANESPN ---
Anes - Prog Note Post-Op Date/Time: 06/27/20 09:23 Cardiovascular status: normal Respiratory status: normal Airway patency: baseline Mental status: baseline Post-Op hydration status: normal Vital Signs: Last Vital Signs Temp 36.1 C L 06/27/20 09:12 Pulse 89 06/27/20 09:12 Resp 18 06/27/20 09:12 BP 119/59 L 06/27/20 09:12 Pulse Ox 87 L 06/27/20 09:12 Pain Score (VAS): 2 I/O: Intake & Output 06/26/20 06/27/20 06/27/20 23:59 07:59 15:59 Intake Total 962 1400 400 Output Total 840 1545 Balance 122 -145 400 Laboratory Tests 06/27/20 05:28 06/27/20 05:28 06/26/20 06/26/20 06/26/20 12:10 16:07 17:38 WBC RBC Hgb Hct MCV MCH MCHC RDW Plt Count MPV Immature Gran % (Auto) Neut % (Auto) Lymph % (Auto) Sherman % (Auto) Eos % (Auto) Baso % (Auto) Lymph # (Auto) Sherman # (Auto) Eos # (Auto) Baso # (Auto) Abs Immat Gran (auto) Absolute Neuts (auto) Absolute Nucleated RBC Nucleated RBC % Sodium Potassium Chloride Carbon Dioxide Anion Gap BUN Creatinine Estim Creat Clear Calc Estimated GFR Glucose POC Capillary Glucose 225 H 257 H 253 H Calcium Magnesium Total Bilirubin AST ALT Alkaline Phosphatase Total Protein Albumin 06/26/20 06/27/20 06/27/20 20:17 05:28 05:28 WBC 16.0 H RBC 4.69 Hgb 14.9 Hct 43.6 MCV 93.0 MCH 31.8 MCHC 34.2 RDW 13.9 Plt Count 158 MPV 11.8 H Immature Gran % (Auto) 0.8 H Neut % (Auto) 78.2 H Lymph % (Auto) 11.6 L Sherman % (Auto) 9.0 H Eos % (Auto) 0.1 Baso % (Auto) 0.3 Lymph # (Auto) 1.85 Sherman # (Auto) 1.4 H Eos # (Auto) 0.0 Baso # (Auto) 0.0 Abs Immat Gran (auto) 0.12 H Absolute Neuts (auto) 12.5 H Absolute Nucleated RBC 0.0 Nucleated RBC % 0.0 Sodium 132 L Potassium 4.5 Chloride 99 Carbon Dioxide 27 Anion Gap 6 L BUN 23 H Creatinine 0.80 Estim Creat Clear Calc 75 Estimated GFR > 60 Glucose 171 H POC Capillary Glucose 339 H Calcium 8.0 L Magnesium 2.2 Total Bilirubin 1.0 AST 32 ALT 31 Alkaline Phosphatase 45 Total Protein 7.0 Albumin 3.6 06/27/20 07:50 WBC RBC Hgb Hct MCV MCH MCHC RDW Plt Count MPV Immature Gran % (Auto) Neut % (Auto) Lymph % (Auto) Sherman % (Auto) Eos % (Auto) Baso % (Auto) Lymph # (Auto) Sherman # (Auto) Eos # (Auto) Baso # (Auto) Abs Immat Gran (auto) Absolute Neuts (auto) Absolute Nucleated RBC Nucleated RBC % Sodium Potassium Chloride Carbon Dioxide Anion Gap BUN Creatinine Estim Creat Clear Calc Estimated GFR Glucose POC Capillary Glucose 175 H Calcium Magnesium Total Bilirubin AST ALT Alkaline Phosphatase Total Protein Albumin Post-procedural complaints: none Patient Feedback: Patient satisfied with anesthetic care.
--- NOTE | 2020-06-27 10:24 | PM.PNGS ---
Progress Note: A&P Assessment and Plan (1) Acute cholecystitis: Code(s): K81.0 - Acute cholecystitis Status: Acute Assessment and Plan: POD#1 and doing well. Found to have acute gangrenous cholecystitis. Continue IV abx and monitor SHERIE drain output today. Tolerating a low fat diet. Pain well-controlled. Encouraged increasing activity, walking the halls, and IS use. (2) Atrial flutter: Code(s): I48.92 - Unspecified atrial flutter Status: Acute Assessment and Plan: Okay to start oral anticoagulation tomorrow morning. Patient is currently on prophylactic-dosed Lovenox. Additional Plan Discussed the plan of care with Dr. Harris. Subjective Subjective Date/Time Seen: 06/27/20 09:24 Patient reports: no new complaints, pain is less, tolerating a regular diet, voiding w/o difficulty, flatus, no bowel movement and afebrile Interval history: Patient sitting in the chair eating breakfast this morning. He reports slight pain where the SHERIE drain is at, but tolerable. Tolerating a low fat diet. SHERIE drain with 145 cc out overnight. No other complaints. Review of Systems Review of Systems: All systems reviewed & are unremarkable except as noted in HPI and below Cardiovascular: Cardiovascular: Reports no additional cardiovascular complaints, Denies chest pain, Denies rapid heart rate and Denies leg edema Gastrointestinal: Gastrointestinal: Reports as per HPI and Reports no additional gastrointestinal complaints Exam Const: General: comfortable, no acute distress, alert and awake Orientation/consciousness: patient oriented x3 Resp: Effort & Inspection: normal respiratory effort Auscultation: clear to auscultation bilaterally Cardio: Rate: regular rate Rhythm: regular rhythm GI: Inspection: non-distended, incision (Abdominal incisions clean and dry) and other (SHERIE drain with dark red/rust-colored output) GI Palp: Yes Soft to palpation, Yes Tenderness to palpation present (GI) (appropriate postoperative tenderness) and No Guarding due to palpation present (GI) Auscultation: normal bowel sounds Skin: General skin exam: normal color Neuro: General: moves all extremities and no focal motor deficits Extrem: General: no clubbing, cyanosis or edema and no calf tenderness Psych: Mental Status: mental status grossly normal Insight: Good insight present (Psych) Judgement: Good judgement present (Psych) Objective Data Vital Signs Vital Signs: Vital Signs - 24 hr 06/26/20 12:00 06/26/20 14:21 06/26/20 15:40 Temperature 101.3 F H 98.0 F Pulse Rate 78 81 80 Respiratory Rate 18 24 H Blood Pressure 118/69 131/77 Pulse Oximetry 91 06/26/20 15:55 06/26/20 16:02 06/26/20 16:10 Temperature Pulse Rate 78 84 80 Respiratory Rate 18 24 H 20 Blood Pressure 133/79 130/75 138/78 Pulse Oximetry 92 91 93 06/26/20 16:25 06/26/20 16:40 06/26/20 16:50 Temperature Pulse Rate 81 85 81 Respiratory Rate 14 20 17 Blood Pressure 131/70 130/72 124/79 Pulse Oximetry 89 L 87 L 88 L 06/26/20 17:05 06/26/20 17:20 06/26/20 17:50 Temperature 97.1 F L 97.5 F L 97.1 F L Pulse Rate 85 80 80 Respiratory Rate 18 18 18 Blood Pressure 129/78 132/73 130/66 Pulse Oximetry 88 L 89 L 90 06/26/20 18:50 06/26/20 20:00 06/26/20 20:14 Temperature 97.2 F L Pulse Rate 87 88 88 Respiratory Rate 20 Blood Pressure 127/68 Pulse Oximetry 89 L 06/26/20 21:49 06/26/20 22:38 06/27/20 00:00 Temperature 97.0 F L Pulse Rate 87 74 Respiratory Rate 16 Blood Pressure 140/82 Pulse Oximetry 90 90 06/27/20 04:00 06/27/20 05:07 06/27/20 08:46 Temperature 96.9 F L Pulse Rate 76 78 85 Respiratory Rate 16 Blood Pressure 115/71 Pulse Oximetry 90 89 L 06/27/20 09:12 Temperature 97.0 F L Pulse Rate 89 Respiratory Rate 18 Blood Pressure 119/59 L Pulse Oximetry 87 L Intake/Output Intake/Output: Intake & Output 06/24/20 06/25/20 06/26/20 06/27/20 23:59 23:59 23:59 23:59
[2020-06-27 11:44] LABS: Glucose Point of Care 321 (65-105)
[2020-06-27] MEDS: INSULIN ASPART (*BKC) 100 UNITS/ML SUB-Q (12:26)
--- NOTE | 2020-06-27 12:55 | PM.IMPN ---
Progress Note: A&P Assessment and Plan (1) Acute cholecystitis: Code(s): K81.0 - Acute cholecystitis Status: Acute Assessment and Plan: Patient came in with abdominal pain or right upper quadrant with radiation to back. Shows diffuse hepatic steatosis. Gallbladder distension, but no specific evidence of acute cholecystitis. HIDA scan was ordered and came back showing nonfilling gallbladder, consistent with acute cholecystitis. Surgery was consulted and has plans to take him for a laparoscopic cholecystectomy this afternoon. Patient was started on IV antibiotics (IV Zosyn Day #2) Continue pain control and antiemetics Continue monitoring. Appreciate surgeries input (2) Acute respiratory failure with hypoxia: Code(s): J96.01 - Acute respiratory failure with hypoxia Status: Acute Assessment and Plan: History of COPD but not chronically on any oxygen therapy. Echocardiogram was ordered showing normal LV systolic function with an EF of 60-65%. No LVH, no pulmonary hypertension, unable to determine diastolic function. No leg swelling at this time, slight crackles to bases, left greater than right but could be due to chronic lung disease Chest x-ray showing atelectasis. Continue incentive spirometer He is resting comfortably at this time. On room air. Does not have [employer] Home [employer] at this time and has plans to follow up with them. Use to see Dr. Meredith. Will do Home Oxygen evaluation prior to discharge. Continue monitoring oxygenation. 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 About 5 years ago he did require oxygen for about 1 month while undergoing treatment for pneumonia. He has not been on any oxygen therapy since then Continue with home inhalers (4) Type 2 diabetes mellitus without complications: Code(s): E11.9 - Type 2 diabetes mellitus without complications Status: Chronic Assessment and Plan: Hemoglobin A1c is 8%. Will hold patient's Detemir Insulin and metformin since he is NPO at this time. Glucose this morning was 171 Continue monitoring glucose with Accu-Cheks every 6 hours with sliding scale, hypoglycemic protocol in place. (5) Hypertension: Code(s): I10 - Essential (primary) hypertension Status: Chronic Assessment and Plan: Blood pressure this morning was 115/71, well controlled. Will hold ARB at this time since he is NPO Continue monitoring blood pressure. P.r.n. hydralazine (6) Hyperlipidemia: Code(s): E78.5 - Hyperlipidemia, unspecified Status: Chronic Assessment and Plan: On hold. Resume home meds when appropriate (7) Atrial flutter: Code(s): I48.92 - Unspecified atrial flutter Status: Acute Assessment and Plan: New onset atrial flutter, could be in the setting of acute cholecystitis infection. Cardiology evaluated the patient and started him on metoprolol 25 mg twice daily and due to his chads 2 Vasc score he will require anticoagulation. Tele showed controlled rate at 75 bpm. Few alarms without any abnormality. Continue Metoprolol. Can be started on Anticoagulation tomorrow morning per surgery. Will check costs of Eliquis and Xarelto with CC. Anticoagulation will be started by Cardiology Continue monitoring. (8) Hypomagnesemia: Code(s): E83.42 - Hypomagnesemia Status: Acute Assessment and Plan: Magnesium was 2.2 normal. Stable.
--- NOTE | 2020-06-27 13:38 | PC.NURSE ---
On 06/27/20, the student, [Sirisha Chavez ], provided care and completed [facility] documentation on this patient. I have reviewed the student's documentation and agree with the findings.
--- NOTE | 2020-06-27 16:38 | PM.PNCARD ---
Progress Note: A&P Assessment and Plan (1) Atrial flutter: Code(s): I48.92 - Unspecified atrial flutter Status: Acute Assessment and Plan: New diagnosis with symptoms suggestive of noted onset at least 6 months ago. Paroxysmal with brief intermittent sinus rhythm on telemetry. No atrial fibrillation identified. predominant underlying atrial flutter with occasional RVR, generally heart rate controlled variable AV block. CHADS2-Vasc score of 3 systemic A/C advised -Per surgery okay to start systemic anticoagulation tomorrow. Patient given coupon for Xarelto. Will initiate Xarelto 20 mg at bedtime beginning tomorrow. Monitor for bleeding. Patient otherwise stable from cardiac perspective. No further workup or testing at this time. We will discuss further management of atrial flutter depending upon persistence and or symptoms. -12 lead EKG in a.m.. -continue metoprolol 25 mg twice daily. Echocardiogram personally reviewed EF preserved 60-65% moderate left atrial enlargement, mild mitral regurgitation RVSP 33 mmHg, within normal range. (2) Abdominal pain, RUQ: Code(s): R10.11 - Right upper quadrant pain Status: Acute Assessment and Plan: Resolved status post cholecystectomy due to acute gangrenous cholecystitis. Antibiotics and management per surgical service. (3) Hyperlipidemia: Code(s): E78.5 - Hyperlipidemia, unspecified Status: Chronic Assessment and Plan: continue atorvastatin. (4) Hypertension: Code(s): I10 - Essential (primary) hypertension Status: Chronic Assessment and Plan: Controlled. No acute issues. (5) Type 2 diabetes mellitus without complications: Code(s): E11.9 - Type 2 diabetes mellitus without complications Status: Chronic Assessment and Plan: Longstanding, management per primary service. (6) Chronic obstructive pulmonary disease, unspecified: Code(s): J44.9 - Chronic obstructive pulmonary disease, unspecified Status: Chronic Assessment and Plan: Symptoms much improved on Anoro. Patient describes history of asbestosis for which he is service connected, describes home oxygen saturations generally around 90% on room air. history of home O2. Subjective Date/time seen: Date of service: 06/27/20 16:38 Follow-up for atrial flutter Status post cholecystectomy. He feels markedly improved. Has minimal surgical site discomfort. No shortness of breath, palpitations or chest pain. Review of Systems Review of Systems: All systems reviewed & are unremarkable except as noted in HPI and below Constitutional: Constitutional: Reports as per HPI and Reports no additional constitutional complaints Eyes: Eyes: Reports as per HPI and Reports no additional eye complaints ENT: Reports system reviewed and no additional complaints, except as documented and Reports as per HPI Cardiovascular: Cardiovascular: Reports as per HPI, Reports no additional cardiovascular complaints, Denies chest pain, Denies palpitations and Denies dyspnea Respiratory: Respiratory: Reports as per HPI, Reports no additional respiratory complaints and Denies dyspnea Gastrointestinal: Gastrointestinal: Reports as per HPI, Reports no additional gastrointestinal complaints, Denies abdominal pain, Denies melena, Denies bloating, Denies hematochezia, Denies nausea and Denies vomiting Genitourinary: Genitourinary: Reports no additional male genitourinary complaints and Reports as per HPI Musculoskeletal: Musculoskeletal: Reports no additional musculoskeletal complaints, Reports as per HPI, Denies back pain and Denies arthralgias Integumentary/Breasts: Skin/Breast: Reports system reviewed and no additional complaints, except as docu and Reports as per HPI Neurologic: Reports system reviewed and no additional complaints, except as documented, Reports as per HPI and Denies confusion Psychiatric: Psychiatric: Reports no additional psychiat
[2020-06-27 17:21] LABS: Glucose Point of Care 180 (65-105)
[2020-06-28] VITALS (9 sets, daily range): BP systolic 106–117; BP diastolic 63–73; PULSE 65–91; RESP 14–16; TEMP 36.2–36.5; O2SAT 87–93
[2020-06-28 00:01] LABS: Glucose Point of Care 309 (65-105)
[2020-06-28 05:35] LABS: Basophils Absolute Auto 0.1 K/mm3 (0.0-0.1); Basophils Percent Auto 0.8 % (0.2-1.2); Eosinophils Absolute Auto 0.2 K/mm3 (0-0.3); Eosinophils Percent Auto 2.5 % (0-4.4); Hematocrit 41.1 % (42.0-52.0); Hemoglobin 14.2 g/dL (14.0-18.0); Immature Granulocyte Absolute 0.11 K/mm3 (0.00-0.031); Immature Granulocyte Percent A 1.1 % (0-0.5); Lymphocytes Absolute Auto 1.76 K/mm3 (0.9-3.2); Lymphocytes Percent Auto 18.1 % (18.3-44.2); Mean Corpuscular HGB Conc 34.5 g/dl (32-36); Mean Corpuscular Hemoglobin 31.4 pg (26-34); Mean Corpuscular Volume 90.9 fl (80-100); Monocytes Absolute Auto 0.9 K/mm3 (0.1-0.6); Monocytes Percent Auto 9.6 % (2.6-8.5); Neutrophils Absolute Auto 6.6 K/mm3 (1.3-6.7); Neutrophils Percent Auto 67.9 % (45.5-73.1); Platelet Count Result 177 k/mm3 (150-375); Red Blood Count 4.52 M/mm3 (4.6-6.20); Red Cell Distribution Width 13.5 % (11.5-14.5); White Blood Count 9.7 K/mm3 (4.5-10.0)
[2020-06-28 06:06] LABS: Anion Gap 3 mmol/L (8-16); Blood Urea Nitrogen 26 mg/dL (9-20); Calcium 8.3 mg/dL (8.4-10.2); Carbon Dioxide 31 mmol/L (22-30); Chloride 99 mmol/L (98-107); Estimated CRCL calculation 61 ml/min; Estimated Glomerular Filt Rate > 60; Glucose 203 mg/dL (75-110); Potassium 4.1 mmol/L (3.4-5.0); Sodium 133 mmol/L (137-145)
[2020-06-28 07:29] LABS: Glucose Point of Care 261 (65-105)
[2020-06-28] MEDS: INSULIN ASPART (*BKC) 100 UNITS/ML SUB-Q ×2 (08:13→12:39)
[2020-06-28] MEDS: ENOXAPARIN 40 MG/0.4 ML SYRINGE SUB-Q (08:16)
[2020-06-28] MEDS: UMECLIDINIUM/VILANTEROL 62.5-25 MCG ELLIPTA 1 PUFF INHALATION (08:17)
[2020-06-28] MEDS: METOPROLOL TARTRATE 25 MG TABLET PO (08:20)
--- NOTE | 2020-06-28 09:50 | PM.PNGS ---
Progress Note: A&P Assessment and Plan (1) Acute cholecystitis: Code(s): K81.0 - Acute cholecystitis Status: Acute Assessment and Plan: Patient continues to improve. Pain well controlled. White blood cell count normal. Will remove SHERIE drain. Continue low-fat diet. Okay to discharge from a surgical standpoint when okay with other services. Follow up in [address] Harris. Would continue another 10 days of oral antibiotics. Discharge instructions discussed with the patient. (2) Atrial flutter: Code(s): I48.92 - Unspecified atrial flutter Status: Acute Assessment and Plan: Okay to start oral anticoagulation today. Additional Plan Discussed the plan of care with Dr. Harris. Subjective Subjective Date/Time Seen: 06/28/20 09:50 Post Op day: 2 (Laparoscopic cholecystectomy) Patient reports: no new complaints, feels better, pain is less, tolerating a regular diet (Low fat), voiding w/o difficulty, flatus, no bowel movement and afebrile Review of Systems Review of Systems: All systems reviewed & are unremarkable except as noted in HPI and below Constitutional: Constitutional: Reports as per HPI, Reports no additional constitutional complaints, Denies chills and Denies fever(s) Cardiovascular: Cardiovascular: Reports no additional cardiovascular complaints, Denies chest pain, Denies leg edema and Denies dyspnea Respiratory: Respiratory: Reports no additional respiratory complaints, Denies cough and Denies dyspnea Gastrointestinal: Gastrointestinal: Reports as per HPI and Reports no additional gastrointestinal complaints Exam Const: General: comfortable, no acute distress, alert and awake Orientation/consciousness: patient oriented x3 Resp: Effort & Inspection: normal respiratory effort Auscultation: clear to auscultation bilaterally Cardio: Rate: regular rate Rhythm: regular rhythm GI: Inspection: non-distended, incision (Abdominal incisions clean and dry, glue intact.) and other (SHERIE with serosanguineous drainage) GI Palp: Yes Soft to palpation, Yes Tenderness to palpation present (GI) (Appropriate postop tenderness) and No Guarding due to palpation present (GI) Auscultation: normal bowel sounds Skin: General skin exam: normal color Neuro: General: moves all extremities and no focal motor deficits Extrem: General: no clubbing, cyanosis or edema and no calf tenderness Psych: Mental Status: mental status grossly normal Insight: Good insight present (Psych) Judgement: Good judgement present (Psych) Objective Data Vital Signs Vital Signs: Vital Signs - 24 hr 06/27/20 10:00 06/27/20 14:00 06/27/20 18:00 Temperature 98.5 F 96.9 F L 98.2 F Pulse Rate 73 82 79 Respiratory Rate 16 14 16 Blood Pressure 131/77 122/71 126/64 Pulse Oximetry 89 L 90 92 06/27/20 21:19 06/27/20 22:00 06/28/20 02:00 Temperature 97.0 F L 97.2 F L Pulse Rate 70 75 81 Respiratory Rate 16 16 Blood Pressure 124/70 106/73 Pulse Oximetry 93 93 06/28/20 06:00 06/28/20 08:20 Temperature 97.5 F L Pulse Rate 69 80 Respiratory Rate 16 Blood Pressure 117/66 Pulse Oximetry 93 Intake/Output Intake/Output: Intake & Output 06/25/20 06/26/20 06/27/20 06/28/20 23:59 23:59 23:59 23:59 Intake Total 3200 2462 3100 500 Output Total 850 1240 2580 15 Balance 2350 1222 520 485 Meds/Results Medications: Active Medications Generic Name Dose Route Start Last Admin Trade Name Freq PRN Reason Stop Dose Admin Acetaminophen 650 mg 06/26/20 16:53 Acetaminophen 325 Mg Tablet PO Q6H PRN Mild Pain (1-3) or Fever Hydrocodone Bitart/Acetaminophen 1 tab 06/26/20 16:53 06/26/20 20:14 Hydrocodone/Acetaminophen (*Crx) 5-325 Mg Tablet PO 1 tab Q4H PRN Administration Pain Rated 4-6 Hydrocodone Bitart/Acetaminophen 1 tab 06/26/20 16:53 Hydrocodone/Acetaminophen (*Crx) 7.5-325 Mg Tablet PO Q4H PRN Pain Rated 7-10 Albuterol 1 puff
--- NOTE | 2020-06-28 09:57 | ECG_ITS ---
Measurements Intervals [place] Rate: 67 P: 66 WI: 154 QRS: 37 QRSD: 94 T: 51 QT: 370 QTc: 392 Interpretive Statements SINUS RHYTHM BASELINE ARTIFACT- I, III, AVL, V2 NORMAL ECG Electronically Signed On 06-28-2020 10:57:54 CDT by Bhavin Haile D.O.
--- NOTE | 2020-06-28 11:34 | HOMEO2EVAL ---
Evaluation was performed at [facility] Home Oxygen Evaluation RC: Home Oxygen (O2) Evaluation Start: 06/27/20 17:32 Freq: ONCE Status: Active Protocol: RPE Activity Type Activity Date Activity User E-Sign Co-Sign Detail Recorded Client Recorded Date Recorded By Document 06/28/20 10:50 [email or web address] [email or web address] 06/28/20 11:34 DJO Document 06/28/20 10:55 [email or web address] [email or web address] 06/28/20 11:34 DJO Document 06/28/20 11:00 [email or web address] [email or web address] 06/28/20 11:34 DJO Document 06/28/20 11:05 [email or web address] [email or web address] 06/28/20 11:34 DJO Document 06/28/20 11:20 [email or web address] [email or web address] 06/28/20 11:34 DJO 06/28/20 06/28/20 06/28/20 10:50 10:55 11:00 Home O2 Evaluation Test Phase Resting Exercise Exercise Oxygen Delivery Room Air Room Air Nasal Cannula Oxygen Flow Rate (L/min) 1 Pulse Oximetry (90-100 %) 90 87 L 88 L Pulse Rate (60-100 beats/min) 74 88 90 Activity Tolerance Ambulation Distance (feet) Treatment Charges O2 Evaluation - Inpatient 06/28/20 06/28/20 11:05 11:20 Home O2 Evaluation Test Phase Exercise Resting Oxygen Delivery Nasal Cannula Room Air Oxygen Flow Rate (L/min) 2 Pulse Oximetry (90-100 %) 90 91 Pulse Rate (60-100 beats/min) 91 72 Activity Tolerance Excellent Ambulation Distance (feet) 750 Treatment Charges
[2020-06-28 11:35] LABS: Glucose Point of Care 280 (65-105)
--- NOTE | 2020-06-28 13:23 | PCRCNOTE ---
HOME OXYGEN EVAL COMPLETE, 2 LITERS WITH ACTIVITY. SET UP WITH [facility]. PHONE NUMBER [phone]. TANK HAS BEEN DELIVERED TO PT'S ROOM FOR DISCHARGE.
--- NOTE | 2020-06-28 15:37 | PM.DS ---
DS: Admitting Diagnosis Admitting Diagnosis Admitting Diagnosis: THIS DISCHARGE SHOULE BE DATED 06/28/2020 Abdominal pain DS: Discharge Diagnosis Discharge Diagnosis (1) Acute cholecystitis: Code(s): K81.0 - Acute cholecystitis Status: Acute Assessment and Plan: Patient is a 74-year-old Man with a history of asbestos exposure, chronic lung disease not on any oxygen, who presented to the emergency room for right upper quadrant abdominal pain with radiation to back. Right upper quadrant ultrasound showed diffuse hepatic steatosis. Gallbladder distension, but no specific evidence of acute cholecystitis. HIDA scan was ordered and came back showing nonfilling gallbladder, consistent with acute cholecystitis. Surgery was consulted and performed a laparoscopic cholecystectomy 06/26/20. Patient gallbladder was found to be gangrenous and a drain was placed postop. Patient was continued on IV antibiotics. Labs improved and white blood cell count normalized. Pain improved. Surgery evaluated him and removed the drain. He is feeling better at this time and can go home on oral pain medication and to continue oral antibiotics as prescribed by general surgery. Patient understands and agrees the plan all questions answered. (2) Acute respiratory failure with hypoxia: Code(s): J96.01 - Acute respiratory failure with hypoxia Status: Acute Assessment and Plan: History of COPD but not chronically on any oxygen therapy. Echocardiogram was ordered showing normal LV systolic function with an EF of 60-65%. No LVH, no pulmonary hypertension, unable to determine diastolic function. No leg swelling at this time, slight crackles to bases, left greater than right but could be due to chronic lung disease Chest x-ray showing atelectasis. Continue incentive spirometer He is resting comfortably at this time. On room air. 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 Used to see Dr. Meredith. Told him to follow up in 1 week for further evaluation as an outpatient. Home oxygen evaluation showed he needs 2 L of oxygen with exertion. No oxygen at rest. Respiratory set him up with oxygen to be discharged with and to be delivered to his home. 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 About 5 years ago he did require oxygen for about 1 month while undergoing treatment for pneumonia. He has not been on any oxygen therapy since then Continue with home inhalers (4) Type 2 diabetes mellitus without complications: Code(s): E11.9 - Type 2 diabetes mellitus without complications Status: Chronic Assessment and Plan: Hemoglobin A1c is 8%. Will hold patient's Detemir Insulin and metformin since he is NPO at this time. Glucose this morning was 171 (5) Hypertension: Code(s): I10 - Essential (primary) hypertension Status: Chronic Assessment and Plan: Blood pressure this morning was 113/63, well controlled. Continue home meds. (6) Hyperlipidemia: Code(s): E78.5 - Hyperlipidemia, unspecified Status: Chronic Assessment and Plan: On hold. Resume home meds when appropriate. (7) Atrial flutter: Code(s): I48.92 - Unspecified atrial flutter Status: Acute Assessment and Plan: New onset atrial flutter, could be in the setting of acute cholecystitis infection. Cardiology evaluated the patient and started him on metoprolol 25 mg twic
== END 2020-06-28 14:40 | disposition home or self-care (01) | DRG 418 ==
LOC: ANHED 14:06 → ANH2MED 21:41
PROVIDERS: Nurse Practitioner; Surgery; Admitting Provider Hospitalist; Emergency Provider Emergency Medicine; PCP Family Medicine; Visit Provider Physician Assistant
PROC: 0FT44ZZ Resection of Gallbladder, Percutaneous Endoscopic Approach (ICD-10-PCS; CPT 47562; principal; 2020-06-26 16:30)
DX: K81.0 Acute cholecystitis (principal); I48.92 Unspecified atrial flutter; K82.A1 Gangrene of gallbladder in cholecystitis; J44.9 Chronic obstructive pulmonary disease, unspecified; E11.9 Type 2 diabetes mellitus without complications; I10 Essential (primary) hypertension; E78.5 Hyperlipidemia, unspecified; K76.0 Fatty (change of) liver, not elsewhere classified; E83.42 Hypomagnesemia; R09.02 Hypoxemia; Z79.4 Long term (current) use of insulin; Z79.899 Other long term (current) drug therapy; Z87.891 Personal history of nicotine dependence
CPT/HCPCS: 36415; 71045; 71046; 71275; 76705; 78226; 78227; 80048; 80053; 80076; 82948; 83036; 83690; 83735; 84443; 84484; 85025; 85610; 85730; 86850; 86900; 86901; 88304; 93005; 94618; 94640; 96361; 96365; 96367; 96374; 96375; 96376; 99285; A9270; A9537; C8929; G0378; J0330; J0690; J1100; J1170; J1650; J1815; J2250; J2270; J2405; J2543; J2550; J2704; J3010; J3475; J7030; J7120; Q9957; Q9967

== ENCOUNTER 2021-12-02 13:00 | Outpatient (NON) | payer MEDICARE, SELFPAY | END 2021-12-02 13:01 | disposition home or self-care (01) | LOC: ANHLAB 12-06 07:40 | PROVIDERS: PCP Family Medicine; Visit Provider Nurse Practitioner | DX: C44.319 Basal cell carcinoma of skin of other parts of face (principal) | CPT/HCPCS: 88305 ==

== ENCOUNTER 2021-12-23 16:54 | Outpatient (NON) | payer OTHER, SELFPAY | END 2021-12-23 16:55 | disposition home or self-care (01) | LOC: ANHLAB 16:54 | PROVIDERS: PCP Family Medicine; Referring Provider Nurse Practitioner; Visit Provider Nurse Practitioner | DX: C44.319 Basal cell carcinoma of skin of other parts of face (principal) | CPT/HCPCS: 88305; 88331 ==

== ENCOUNTER 2023-12-24 13:51 | Emergency (ER) | payer OTHER, SELFPAY ==
[2023-12-24 14:00] VITALS: BP 141/61; PULSE 75; RESP 20; TEMP 37.1; O2SAT 98
--- NOTE | 2023-12-24 14:04 | ED.SKABFB ---
HPI - Skin/Abscess/Foreign Bdy General Chief complaint: Skin/Abscess/Foreign Body Stated complaint: lump on leg Time Seen by Provider: 12/24/23 14:14 Source: patient, RN notes reviewed and old records reviewed Mode of arrival: ambulatory Limitations: no limitations History of Present Illness HPI narrative: 78-year old male presents to the [facility] with a lump to the lateral aspect left knee. Patient states that it got bigger overnight. Has an appointment with Dr. Perez on the . Tender to palpation. No bruising, erythema, fluctuance. Not warm to touch. Related Data Home Medications Medication Instructions Recorded Confirmed atorvastatin 10 mg tablet 10 mg PO DAILY 06/24/20 12/15/23 insulin aspart U-100 100 unit/mL 1 sliding scale dose subcut 01/03/21 12/15/23 (3 mL) subcutaneous pen (Novolog USEASDIRECTD FlexPen U-100 Insulin aspart) dapagliflozin propanediol 10 mg 10 mg PO DAILY 05/30/21 12/15/23 tablet (Farxiga) cholecalciferol (vitamin D3) 50 50 mcg PO DAILY 09/29/22 12/15/23 mcg (2,000 unit) capsule insulin glargine 100 unit/mL (3 unit subcut 08/19/23 12/15/23 mL) subcutaneous pen (Lantus Solostar U-100 Insulin) linagliptin 5 mg tablet (Tradjenta) 5 mg PO QAM 08/19/23 12/15/23 Allergies Allergy/AdvReac Type Severity Reaction Status Date / Time ragweed pollen Allergy sinus Verified 12/15/23 10:29 latex AdvReac Mild rash Verified 12/15/23 10:29 Review of Systems Review of Systems: All systems reviewed & are unremarkable except as noted in HPI and below Constitutional: Constitutional: Reports no additional constitutional complaints ENT: Reports system reviewed and no additional complaints, except as documented Cardiovascular: Cardiovascular: Reports no additional cardiovascular complaints, Denies chest pain and Denies dyspnea Respiratory: Respiratory: Reports no additional respiratory complaints, Denies chest congestion, Denies cough and Denies dyspnea Gastrointestinal: Gastrointestinal: Reports no additional gastrointestinal complaints, Denies abdominal pain, Denies nausea and Denies vomiting Musculoskeletal: Musculoskeletal: Reports no additional musculoskeletal complaints Integumentary/Breasts: Skin/Breast: Reports as per HPI [facility] Past Medical History Medical History Abnormal skin morphology determined by biopsy Acute respiratory failure with hypoxia Asbestosis Atrial flutter BMI 25.0-25.9,adult BMI 29.0-29.9,adult Cataract fragments in both eyes following surgery Cerumen impaction Chronic obstructive pulmonary disease, unspecified Chronic respiratory failure with hypoxia Essential (primary) hypertension Hypercholesterolemia Hyperlipidemia Hypertension Otitis media with effusion Type 2 diabetes mellitus without complications Vertigo Surgical History Surgical History Hx laparoscopic cholecystectomy S/P arthroscopic surgery of right knee S/P tonsillectomy and adenoidectomy Family History Family History Sibling Cancer Father Acute myocardial infarction Lung disease Tobacco abuse Sibling Esophageal adenocarcinoma Mother Social History Social History Social History: Patient is and his is 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 The patient desires to be a full code but does not desire to live in a vegetative state. The patient has 2 children. The patient quit smoking in 1988. He has 2 children. He retired from [employer]. 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 Gender identity (if verbalized by the patient): Male Spiritual care concerns: No Comments At the time of my signature, I reviewed and agree with the nursing past medical, surgical, social, and family history. There is no relevant family history pertinent to the patient complaint. Exam Const: General: cooperative, healthy appearing, comfortable, no acute distress, well developed, alert and well nourished Nutritional Appearance: well nourished Orientation/consciousness: patient oriented x3 Limitations: no limitations HENMT: Head: normal to inspection Ears: hearing grossly normal bilaterally and external ears normal Face/Nose/Sinus: Normal external nose present, normal facial exam and face symmetric Face and sinus: normal facial exam and face symmetric Eyes: General: appearance normal, both eyes and all related structures Alignment and Position: alignment normal Periorbital: periorbital findings normal Neck: Neck: normal visual inspection, full ROM, no lymphadenopathy and no meningeal signs Chest: Chest palpation & inspection: normal inspection of the chest Resp: Effort & Inspection: normal respiratory effort and able to speak in complete sentences Cardio: Rate: regular rate Skin: General skin exam: normal color and no rashes or lesions noted Rashes: no rashes Wounds: no wounds Other: Raise, skin colored area cyst-like structure left lateral knee Neuro: General: patient oriented x3, gait normal, tone normal, moves all extremities and no meningeal signs Cognition (Neuro): normal cognition Speech: normal speech Gait exam (Neuro): Normal gait present Extrem: General: normal to inspection, full ROM, capillary refill normal and normal gait Upper/lower leg/hip images: 1. 2x2 cm firm cyst like structure. No erythema, ecchymosis. No increased warmth, no fluctuance Psych: Appearance: grossly normal and well kempt Mental Status: mental status grossly normal Speech and movement: Normal speech and movement present and Clear speech present Affect: normal affect Attitude: cooperative Course Course Level of Care: Express Care Visit Vital Signs Vital signs: Vital Signs Temperature 98.7 F 12/24/23 14:00 Pulse Rate 75 12/24/23 14:00 Respiratory Rate 20 12/24/23 14:00 Blood Pressure 141/61 H 12/24/23 14:00 Pulse Oximetry 98 12/24/23 14:00 Oxygen Delivery Room Air 12/24/23 14:00 Temperature 98.7 F 12/24/23 14:00 Pulse Rate 75 12/24/23 14:00 Respiratory Rate 20 12/24/23 14:00 Blood Pressure 141/61 H 12/24/23 14:00 Pulse Oximetry 98 12/24/23 14:00 Oxygen Delivery Room Air 12/24/23 14:00 Reviewed MDM - Skin/Abscess/Foreign Bdy MDM Narrative Medical decision making narrative: Patient sitting comfortably in exam room. Nontoxic, vitals stable. Patient in no acute distress Patient presents with a cyst-like structure, has an appointment with primary care provider No erythema, ecchymosis. No fluctuance. No swelling distal to area Patient appropriate for outpatient treatment Discharge instructions reviewed with patient, as well as provided in writing per nursing staff. The instructions also include specific and strict return/GO TO THE ER as well as f/u information. All questions have been answered, and the patient deny any further questions with discharge and discharge plan. Some parts of this dictation were generated by voice recognition software and may contain typographical and/or grammatical inaccuracies. Differential Diagnosis Differential diagnosis: Likely cellulitis, insect bites and other (Cis) Critical Care Time Critical Care Time Critical Care Time: No Discharge Plan Discharge Clinical Impression: Cyst Patient Disposition: Home, Self-Care Condition: Stable Instructions: Antibiotic Form, Cyst (ED) Additional Instructions: Take Tylenol as needed Keep your appointment with Dr. Perez as already scheduled on the For new or worsening symptoms go directly to the ER Patient Language: German Prescriptions: No Action Farxiga 10 mg tablet 10 mg PO DAILY cholecalciferol (vitamin D3) 50 mcg (2,000 unit) capsule 50 mcg PO DAILY metformin 1,000 mg tablet 1,000 mg PO BID Qty: 180 3RF insulin aspart U-100 [Novolog FlexPen U-100 Insulin] 100 unit/mL (3 mL) insulin pen 1 sliding scale dose subcut USEASDIRECTD insulin glargine [Lantus Solostar U-100 Insulin] 100 unit/mL (3 mL) insulin pen subcut Tradjenta 5 mg tablet 5 mg PO QAM meclizine 25 mg tablet 25 mg PO BID PRN (Reason: dizziness) Qty: 30 3RF atorvastatin 10 mg Tablet 10 mg PO DAILY Xarelto 20 mg Tablet 20 mg PO DAILY@1700 Qty: 30 0RF metoprolol tartrate 25 mg Tablet 25 mg PO Q12HR Qty: 60 0RF montelukast 10 mg tablet 10 mg PO DAILY Qty: 90 3RF olmesartan 20 mg tablet 20 mg PO DAILY Qty: 90 3RF Anoro Ellipta 62.5-25 mcg/actuation blister with device See Rx Instructions .ROUTE .COMPLEX Qty: 180 0RF Dose Instruction: USE 1 INHALATION ORALLY DAILY Rx Instructions: USE 1 INHALATION ORALLY DAILY omeprazole 20 mg capsule,delayed release(DR/EC) 20 mg PO DAILY Qty: 90 0RF omega-3 acid ethyl esters 1 gram capsule 2 cap PO BID Qty: 360 3RF Follow-up/Referrals: Edmundo Haywood MD [Primary Care Provider] - 1 Week ([facility] follow-up, cyst-like structure left lateral knee) Time of Disposition: 14:24
== END 2023-12-24 14:32 | disposition home or self-care (01) ==
PROVIDERS: Emergency Provider Nurse Practitioner; PCP Family Medicine
DX: L72.9 Follicular cyst of the skin and subcutaneous tissue, unspecified (principal); Z87.891 Personal history of nicotine dependence; I48.91 Unspecified atrial fibrillation; J44.9 Chronic obstructive pulmonary disease, unspecified; I10 Essential (primary) hypertension; E78.00 Pure hypercholesterolemia, unspecified; E78.5 Hyperlipidemia, unspecified; E11.9 Type 2 diabetes mellitus without complications; Z79.4 Long term (current) use of insulin; J61 Pneumoconiosis due to asbestos and other mineral fibers
CPT/HCPCS: 99211; G0463